=== PATIENT | female | born 1970 | race Caucasian/White ===

== ENCOUNTER 2017-06-23 16:49 | Outpatient (CLI) | payer OTHER ==
--- NOTE | 2017-06-23 19:50 | RAD ---
CHEST TWO VIEWS 06/23/17 HISTORY: Cough. Bronchitis. COMPARISON: 10/13/16. FINDINGS: The cardiac silhouette and pulmonary vasculature are unremarkable. Mediastinum is midline. There is no confluent air space consolidation, pneumothorax, or pleural fluid evident. IMPRESSION: No active cardiopulmonary abnormalities are demonstrated. POS: [facility]
== END 2017-06-23 16:50 | disposition home or self-care (01) ==
LOC: SCSRAD 16:49
PROVIDERS: ATTEND Nurse Practitioner Family
DX: J40 Bronchitis, not specified as acute or chronic (principal)
CPT/HCPCS: 71020

== ENCOUNTER 2017-08-04 12:42 | Emergency (ER) | payer OTHER ==
--- NOTE | 2017-08-04 13:26 | RAD ---
CHEST TWO VIEWS: History: Cough. Comparison: 06-23-17 FINDINGS: The cardiac silhouette and pulmonary vasculature are unremarkable. Mediastinum is midline. There is n o confluent airspace consolidation, pneumothorax, or pleural fluid apparent. IMPRESSION: 1. No active cardiopulmonary abnormalities are demonstrated. POS: [facility]
[2017-08-04] MEDS ORDERED: predniSONE 20 MG TAB ONE (13:58)
[2017-08-04] MEDS ORDERED: Albuterol Sulfate 2.5 mg/3 ml Neb ONE (14:01)
== END 2017-08-04 14:12 | disposition home or self-care (01) ==
LOC: SCSER 12:42
DX: J32.9 Chronic sinusitis, unspecified (principal); F32.9 Major depressive disorder, single episode, unspecified; Z79.899 Other long term (current) drug therapy; Z87.891 Personal history of nicotine dependence
CPT/HCPCS: 71020; 94640; J7506; J7611

== ENCOUNTER 2017-11-23 11:21 | Outpatient (CLI) | payer OTHER ==
--- NOTE | 2017-12-23 14:00 | MMO ---
BILATERAL SCREENING MAMMOGRAM: Indication: Annual exam. Comparison: None available at the time of this evaluation. This will serve as the patient's baseline examination. Previous mammograms reportedly performed in [place]. These were unable to be retrieved. FINDINGS: This study is interpreted with the assistance of computer aided detection. There are scattered fibroglandular elements within both breasts. There is an intramammary lymph node within the inner aspect of the right breast. No suspicious mass, cluster of microcalcifications ore a rchitectural distortion is evident. IMPRESSION: BIRADS 2 - benign. Recommend routine screening mammography. POS: [facility]
== END 2017-11-23 11:22 | disposition home or self-care (01) ==
LOC: SCSMAMMO 11:21
PROVIDERS: ATTEND Family Medicine
DX: Z12.31 Encounter for screening mammogram for malignant neoplasm of breast (principal)
CPT/HCPCS: 77067

== ENCOUNTER 2018-01-11 10:11 | Outpatient (CLI) | payer OTHER | END 2018-01-11 10:12 | disposition home or self-care (01) | LOC: CTENTCT 10:11 | PROVIDERS: ATTEND Physician Assistant | DX: J32.9 Chronic sinusitis, unspecified (principal) | CPT/HCPCS: 70486 ==

== ENCOUNTER 2018-02-04 11:30 | Day surgery (SDC) | payer OTHER ==
[2018-02-03 15:07] VITALS: BMI 43.7
[2018-02-04] MEDS ORDERED: Oxymetazoline HCl 0.05% ( 15 ML ) ONE ×2 (11:59→12:37)
[2018-02-04] MEDS ORDERED: Lidocaine 1% w/Epinephrine 1:100K 30 ML VIAL ONE (12:37)
[2018-02-04] MEDS ORDERED: Scopolamine 1.5 mg/72 hour Patch ONE (12:42)
[2018-02-04] MEDS ORDERED: Midazolam HCl 2 mg/2 ml Vial ONE (12:42)
[2018-02-04] MEDS ORDERED: Fentanyl 250 MCG/5 ML VIAL ONE (12:42)
[2018-02-04] MEDS ORDERED: Fentanyl 100 MCG/2 ML VIAL ONE (14:33)
[2018-02-04] MEDS ORDERED: Glycopyrrolate 0.2 MG/ML 5 ML SYRINGE ONE (15:27)
[2018-02-04] MEDS ORDERED: Esmolol 100 MG/10 ML VIAL ONE (15:27)
[2018-02-04] MEDS ORDERED: Ondansetron HCl/PF 4 MG/2 ML Vial ONE (15:27)
[2018-02-04] MEDS ORDERED: Dexamethasone 20 MG/5 ML VIAL ONE (15:27)
[2018-02-04] MEDS ORDERED: Lidocaine 1% PF 5 ML VIAL ONE (15:27)
[2018-02-04] MEDS ORDERED: PROPOFOL 200 MG/20 ML VIAL ONE (15:27)
[2018-02-04] MEDS ORDERED: Hydrocodone-Acetamin 15 ML UDCUP ONE (15:45)
--- NOTE | 2018-02-04 16:28 | OP ---
PREOPERATIVE DIAGNOSES: Chronic sinusitis, recurrent sinusitis, deviated septum, hypertrophic inferi or turbinates, ye bullosa. POSTOPERATIVE DIAGNOSES: Chronic sinusitis, recurrent sinusitis, deviated septum, hypertrophic infer ior turbinates, ye bullosa. PROCEDURES PERFORMED: 1. Right nasal endoscopy with resection of ye bullosa. 2. Bilateral nasal endoscopy with total ethmoidectomy. 3. Bilateral nasal endoscopy with frontal sinusotomy. 4. Bilateral nasal endoscopy with maxillary antrostomy with removal of tissue. 5. Bilateral nasal endoscopy with sphenoidotomy. 6. Bilateral nasal endoscopy with submucosal resection of inferior turbinates and septoplasty. PROCEDURE IN DETAIL: After consent was obtained, the patient was identified, brought to the operatin g room, and placed on the operating room table in the supine position. Consent was obtained, notifyi ng the patient of the possibility of additional infections, bleeding, brain injury, and eye/orbital i njury. The patient was placed on the operating room table, and general endotracheal anesthesia and intravenous access was obtained. The patient was then positioned, prepped and draped for endoscopic sinus surgery. Nasal preparation included trimming nasal vestibular hairs and spraying in topical Af rin. We then placed Afrin topical solution on nasal pledgets and strategically located them intranas ally. The perinasal mucosa was injected with 1% lidocaine with 1:100,000 epinephrine in the submucop erichondrial plane of the septum, lateral nasal wall, and anterior to the uncinate. The patient was then prepped and draped in a sterile fashion and positioned for endoscopic sinus surgery. The ye bullosa was identified and entered with a sickle blade. The lateral aspect of the ye bullosa was meticulously resected while leaving the medial most aspect to form the new middle turbina te. Attention was made not to violate the mucosa. The straight biting punches and micro-debrider we re used to remove shrouds of mucosa and bony debris. The uncinate was then identified and the extent of the uncinate was appreciated by out-fracturing the uncinate with the ball-tip probe. We then used the sickle blade to disarticulate the uncinate from the lateral nasal wall. This was then removed with straight biting and upbiting punches with the rem aining shrouds of mucosa and bony septum removed with the micro-debrider. The natural os of the maxi llary sinus was then identified and enlarged with the maxillary punches and back biting forceps. The anterior face of the ethmoid bulla was entered and with the micro-debrider, dissection continued posteriorly to the ground lamella. The limits of dissection included the insertion of the middle tur binate, medial orbital wall, and base of skull. We similarly identified the frontal recess and remov ed shrouds of bone and debris in that region to obtain patency into the agger nasi region and frontal recess. We then entered the ground lamella and its anteroinferior aspect and proceeded posteriorly, opening the posterior ethmoid air-cell system. Again, the limits of dissection included the base of skull and medial orbital wall. The anterior face of the sphenoid was identified and entered in its extreme anteroinferior aspect. A sphenoid punch was then used to enlarge the sphenoidotomy and no injury to the optic nerve or email marketing intern al carotid artery occurred. The inferior turbinates were visualized under endoscopic visualization and outfractured with the elev ator. The inferolateral edge of the inferior turbinate was then cauterized along its length with the suction cautery without difficulty. The inferior turbinates were visualized with a 0-degree endoscope and outfractured with a Joey eleva tor. The inferior medial aspect was cauterized with the electrocautery. Hemostasis was obtained. A fter adequate airway was established, we turned our attention to the contralateral side and used a si milar procedure. Again, a Joey elevator was used to outfracture inferior turbinates under endoscopi c visualization. With a suction cautery, the free inferior medial aspect was cauterized under direct visualization along the length of the inferior turbinate. After local anesthesia was infiltrated into the submucoperichondrial plane, a standard Harish incisi on was made with a #15 blade down to the level of the septal cartilage. The caudal elevator was used to elevate the mucoperichondrium from the underlying cartilage. We then proceeded beyond the bony c artilaginous junction and elevated the bony periosteum as well. Great attention was paid to the spur to prevent rent formation in the septal flap. A transcartilaginous incision was then made, while pre serving an adequate dorsal and caudal cartilaginous strut for tip support. The deformed cartilage wa s removed and disarticulated from the bony cartilaginous junction and maxillary crest. This was plac ed in saline and would later be crushed and returned to the mucoperichondrial envelope. We then elev ated the contralateral periosteum from the bony cartilaginous region and removed the deformed portion s of the bone and bony spurs. The cartilage was then crushed and placed back into the mucoperichondr ial envelope and the mucosa was re-approximated with a quilting stitch composed of rapidly absorbent gut suture. The [place] incision was also closed with interrupted gut suture. At the completion of the case, Chen splints were placed and suture secured to the caudal septum. At this point, we then turned our attention to the contralateral side and proceeded with endoscopic s inus surgery. At the completion of the case, Rice keel splints were placed in the ethmoid cavities after the ethmoi dectomy. There were no complications. The patient tolerated the procedure well and was discharged t o the recovery room in stable condition prior to return to the preoperative Day Stay with [facility]. Prescriptions for pain medication and antibiotics were provided. The patient received intramuscular Depo-Medrol during the case.
== END 2018-02-04 16:47 | disposition home or self-care (01) ==
LOC: SDC 11:30
PROVIDERS: ATTEND Specialist
PROC: 09TV8ZZ Resection of Left Ethmoid Sinus, Via Natural or Artificial Opening Endoscopic (ICD-10-PCS; principal; 2018-02-04)
PROC: 099Q8ZZ Drainage of Right Maxillary Sinus, Via Natural or Artificial Opening Endoscopic (ICD-10-PCS; principal; 2018-02-04)
PROC: 09BT8ZZ Excision of Left Frontal Sinus, Via Natural or Artificial Opening Endoscopic (ICD-10-PCS; principal; 2018-02-04)
PROC: 09RM0KZ Replacement of Nasal Septum with Nonautologous Tissue Substitute, Open Approach (ICD-10-PCS; principal; 2018-02-04)
PROC: 099R8ZZ Drainage of Left Maxillary Sinus, Via Natural or Artificial Opening Endoscopic (ICD-10-PCS; principal; 2018-02-04)
PROC: 09BS8ZZ Excision of Right Frontal Sinus, Via Natural or Artificial Opening Endoscopic (ICD-10-PCS; principal; 2018-02-04)
PROC: 09TL8ZZ Resection of Nasal Turbinate, Via Natural or Artificial Opening Endoscopic (ICD-10-PCS; principal; 2018-02-04)
PROC: 09TU8ZZ Resection of Right Ethmoid Sinus, Via Natural or Artificial Opening Endoscopic (ICD-10-PCS; principal; 2018-02-04)
PROC: 09BX8ZZ Excision of Left Sphenoid Sinus, Via Natural or Artificial Opening Endoscopic (ICD-10-PCS; principal; 2018-02-04)
PROC: 09BW8ZZ Excision of Right Sphenoid Sinus, Via Natural or Artificial Opening Endoscopic (ICD-10-PCS; principal; 2018-02-04)
DX: J32.9 Chronic sinusitis, unspecified (principal); J34.2 Deviated nasal septum; J34.3 Hypertrophy of nasal turbinates; J34.89 Other specified disorders of nose and nasal sinuses; I10 Essential (primary) hypertension; K21.9 Gastro-esophageal reflux disease without esophagitis; F32.9 Major depressive disorder, single episode, unspecified; J30.1 Allergic rhinitis due to pollen; J30.81 Allergic rhinitis due to animal (cat) (dog) hair and dander; J30.89 Other allergic rhinitis; Z87.891 Personal history of nicotine dependence; Z79.899 Other long term (current) drug therapy; Z88.5 Allergy status to narcotic agent
CPT/HCPCS: 36415; 85014; 96374; J1100; J2001; J2250; J2405; J2704; J2920; J3010

== ENCOUNTER → 2018-06-15 | Day surgery (SDC) | payer OTHER ==
[2018-06-14 11:55] VITALS: BMI 44.8
[~2018-06-15] MED LIST: Bacitracin Zinc Ointment 30 gm TUBE ONE; Betamet Acet/Betamet Na Ph 30 MG/5 ML VIAL ONE; Bupivacaine PF 0.5% 30 ML VIAL ONE; CEFAZOLIN 2 GM/50 ML BAG ONE; Famotidine/PF 20 mg/2ml Vial ONE; Fentanyl 100 MCG/2 ML VIAL ONE; Ketorolac Tromethamine 30 MG/ML VIAL ONE; Lidocaine 1% PF 5 ML VIAL ONE; Metoclopramide HCl 10 MG/2 ML VIAL ONE; Midazolam HCl 2 mg/2 ml Vial ONE; Ondansetron PF 4 MG/2 ML Vial ONE; PHENYLEPHRINE-NS 100 MCG/ML 10 ML SYRINGE ONE; PROPOFOL 20 ML ONE; PROPOFOL 200 MG/20 ML VIAL ONE
[2018-06-15 07:42] LABS: #Eosinphils 0.2 thou/uL (0.0-0.7); #Lymphocytes 1.2 thou/uL (1.20-3.40); #Monocytes 0.6 thou/uL (0.11-0.59); #Neutrophils 4.4 thou/uL (1.40-6.50); %Basophils 0.6 % (0.0-1.0); %Eosinophils 2.5 % (0.0-10.0); %Lymphocytes 18.6 % (21.0-51.0); %Monocytes 8.9 % (0.0-10.0); %Neutrophils 69.4 % (42.0-75.0); Hemoglobin 12.6 g/dL (12.0-16.0); Mean Corpuscular HGB CONC 31.1 g/dL (32.0-36.0); Mean Corpuscular Hemoglobin 28.7 pg (27.0-31.0); Mean Corpuscular Volume 92.2 fL (78.0-98.0); Mean Platelet Volume 9.9 fL (7.4-10.4); Platelet Count 184 thou/uL (130-400); RBC Distribution Width 12.9 % (11.5-14.5); Red Blood Cell (RBC) Count 4.37 mill/uL (4.20-5.40); White Blood Cell (WBC) Count 6.3 thou/uL (4.8-10.8)
--- NOTE | 2018-06-16 15:13 | OP ---
DATE OF PROCEDURE: 06/15/2018 SURGEON: Ean West M.D. ANESTHESIA: General LMA. TECHNIQUE: Augmented by 10 mL of 0.5% Marcaine block at the carpal tunnel and along the incision. PREOPERATIVE DIAGNOSES: 1. Right carpal tunnel syndrome. 2. Left carpal tunnel syndrome. POSTOPERATIVE DIAGNOSES: 1. Right carpal tunnel syndrome. 2. Left carpal tunnel syndrome. FINDINGS: Left and right carpal tunnel syndrome with finding of stippling over 1 cm area on the left side and over 3/4 cm on the right with early hourglass formation, flattening on both sides. Also, t he patient underwent steroid injection, 2 mL of Celestone dripped over the area of greatest nerve inv olvement. PROCEDURES PERFORMED: Left carpal tunnel release followed by right carpal tunnel release. TOURNIQUET TIME: At the left, 12 minutes, 11 minutes. BLOOD LOSS: Same 5 mL at each, dressings same. INDICATIONS: Patient has failed conservative treatment to include injections which gave fleeting rel ief greater than 1 week, but not permanent, bracing and medication, but all failed for bilatera l carpal tunnel syndrome. DESCRIPTION OF PROCEDURE: After successful general LMA technique, the limb was prepped and draped. We had both sides prepped and draped simultaneously. We initially approached the left. We exsanguin ated the limb, placed the tourniquet at 250 mmHg pressure. Outline incision beginning at the Wood' s cardinal line distally in line with the ring finger and as far proximal as 5 mm distal volar wrist flexion crease. We carried the incision once tourniquet was inflated through skin and subcutaneous t issue with an 11-blade knife. Then, we dissected down sharply to visualize the transcarpal ligament entered into midportion from there distally, protecting all the nerve branch with type 1 nerve takeof f. We then did the same procedure using combination of [place] blade and tenotomy scissors from the m id portion proximally until we have freed the nerve root completely. We then found the hourglass for mation and stippling erythema, but there was not taken enough synovium to require synovectomy. We then inflated the tourniquet, placed 2 mL of Celestone into the wound over the nerve area, where w missael found the stippling and hourglass formation, and closed the incision with interrupted 4-0 nylon mat tress pattern. Bulky dressing was applied and then we turned our attention to the right side. On the right side, I set for a tourniquet time of 1 minute, less than 11, the exact same mirror image procedure was performed with same findings, outcome, dressing, and no castings whatsoever.
== END ==
LOC: SDC 07:02
PROVIDERS: ATTEND Orthopaedic Surgery Hand Surgery
PROC: 01N50ZZ Release Median Nerve, Open Approach (ICD-10-PCS; principal; 2018-06-15)
DX: G56.03 Carpal tunnel syndrome, bilateral upper limbs (principal); G56.10 Other lesions of median nerve, unspecified upper limb; M47.812 Spondylosis without myelopathy or radiculopathy, cervical region; Z90.710 Acquired absence of both cervix and uterus; Z98.890 Other specified postprocedural states
CPT/HCPCS: 36415; 85025; 96372; J0131; J0702; J1885; J2001; J2250; J2405; J2704; J2765; J3010; S0020; S0028

== ENCOUNTER 2018-11-18 08:44 | Outpatient (CLI) | payer OTHER ==
--- NOTE | 2018-11-18 09:22 | RAD ---
KUB: 11/18/2018 COMPARISON: None HISTORY: Epigastric pain, generalized abdominal pain FINDINGS: Punctate calcification in left upper quadrant may represent a 3 mm left renal stone. Bowel gas pattern appears nonobstructed. No acute osseous abnormality. Suture line suspected in left upper quadrant. IMPRESSION: No acute findings.
== END 2018-11-18 08:45 | disposition home or self-care (01) ==
LOC: SCSRAD 08:44
PROVIDERS: ATTEND Nurse Practitioner Family
DX: R10.84 Generalized abdominal pain (principal)
CPT/HCPCS: 74018

== ENCOUNTER 2018-12-17 08:04 | Outpatient (CLI) | payer OTHER ==
--- NOTE | 2018-12-17 12:00 | MMO ---
Bilateral MAMMO Bilat Screen [facility]DI. CLINICAL HISTORY: Patient is 48 years old and is seen for screening. The patient has no family history of breast cancer. The patient has no personal history of cancer. VIEWS: The views performed were: bilateral craniocaudal and bilateral mediolateral oblique. FILMS COMPARED: The present examination has been compared to a prior imaging study performed at [facility] on 11/23/2017. This study has been interpreted with the assistance of computer-aided detection. MAMMOGRAM FINDINGS: There are scattered fibroglandular densities. There are no suspicious masses, suspicious calcifications, or new areas of architectural distortion. IMPRESSION: THERE IS NO MAMMOGRAPHIC EVIDENCE OF MALIGNANCY. A ROUTINE FOLLOW-UP MAMMOGRAM IN 1 YEAR IS RECOMMENDED. ACR BI-RADS Category 1 - Negative MAMMOGRAPHY NOTE: 1. A negative mammogram report should not delay a biopsy if a dominant of clinically suspicious mass is present. 2. Approximately 10% to 15% of breast cancers are not detected by mammography. 3. Adenosis and dense breasts may obscure an underlying neoplasm.
== END 2018-12-17 08:05 | disposition home or self-care (01) ==
LOC: SCSMAMMO 08:04
PROVIDERS: ATTEND Family Medicine
DX: Z12.31 Encounter for screening mammogram for malignant neoplasm of breast (principal)
CPT/HCPCS: 77067

== ENCOUNTER 2019-06-29 07:00 | Outpatient (CLI) | payer OTHER ==
--- NOTE | 2019-06-29 07:42 | ULT ---
Gallbladder ultrasound: Multiple grayscale images of right upper quadrant obtained according to protocol. INDICATION: Pain FINDINGS: Liver: Normal Gallbladder: No acute process Gallbladder wall: Normal. Isbell's Sign: Negative Common bile duct is normal. Ascites: None IMPRESSION: No acute abnormalities.
== END 2019-06-29 07:01 | disposition home or self-care (01) ==
LOC: SCSULT 07:00
PROVIDERS: ATTEND Internal Medicine Gastroenterology
DX: R10.13 Epigastric pain (principal); R19.4 Change in bowel habit
CPT/HCPCS: 76705

== ENCOUNTER 2019-06-29 09:51 | Day surgery (SDC) | payer OTHER ==
[2019-06-28 16:49] VITALS: BMI 48.5
[~2019-06-29 09:51] MED LIST changes: -Bacitracin Zinc Ointment 30 gm TUBE ONE; -Betamet Acet/Betamet Na Ph 30 MG/5 ML VIAL ONE; -Bupivacaine PF 0.5% 30 ML VIAL ONE; -CEFAZOLIN 2 GM/50 ML BAG ONE; -Famotidine/PF 20 mg/2ml Vial ONE; -Fentanyl 100 MCG/2 ML VIAL ONE; -Ketorolac Tromethamine 30 MG/ML VIAL ONE; -Metoclopramide HCl 10 MG/2 ML VIAL ONE; -Midazolam HCl 2 mg/2 ml Vial ONE; -Ondansetron PF 4 MG/2 ML Vial ONE; -PHENYLEPHRINE-NS 100 MCG/ML 10 ML SYRINGE ONE; -PROPOFOL 20 ML ONE
--- NOTE | 2019-06-29 18:17 | OP ---
DATE OF PROCEDURE: 06/29/2019 PROCEDURE PERFORMED: Esophagogastroduodenoscopy with biopsy. PREMEDICATION: Given by Anesthesiology Department. PREPROCEDURE DIAGNOSES: 1. Epigastric pain. 2. Normal gallbladder ultrasound. 3. Status post gastrojejunostomy in 2003. POSTPROCEDURE DIAGNOSES: 1. Three ulcers in jejunum portion distal to the anastomosis, largest measuring 1 cm. 2. Normal anastomosis. 3. Normal pouch and esophagus. DESCRIPTION OF PROCEDURE: Written consents obtained prior to procedure. After adequate sedation, forward-viewing endoscope was advanced down the stomach under direct vision to the jejunum. The esophagus appeared normal. The Z-line was located at 36 cm and appeared normal. The gastric pouch measured 5 cm in length and appeared normal. The anastomosis was normal. Immediately beyond the anastomosis, 3 ulcers ranging between 5 mm to 10 mm were seen. The craters were clean. No stigmata of bleeding were seen. The jejunum was explored for 40 cm and appeared normal. The scope was then retracted back to the pouch. Biopsies were obtained for Helicobacter pylori. The instruments have fully removed. The patient tolerated the procedure well. ASSESSMENT: 1. Three jejunal ulcers immediately distal to the anastomosis. 2. Otherwise normal gastrojejunostomy exam with 5 cm pouch. PLAN: 1. Await biopsy results. 2. Pantoprazole 40 mg q.a.m. 3. Follow up in office in 1 month. Job ID: [id number]
== END 2019-06-29 12:51 | disposition home or self-care (01) ==
LOC: SDC 09:51
PROVIDERS: ATTEND Internal Medicine Gastroenterology
PROC: 0DB68ZX Excision of Stomach, Via Natural or Artificial Opening Endoscopic, Diagnostic (ICD-10-PCS; principal; 2019-06-29)
DX: K28.9 Gastrojejunal ulcer, unspecified as acute or chronic, without hemorrhage or perforation (principal); K29.50 Unspecified chronic gastritis without bleeding; R19.4 Change in bowel habit; I10 Essential (primary) hypertension; Z79.899 Other long term (current) drug therapy; Z88.5 Allergy status to narcotic agent; Z87.891 Personal history of nicotine dependence
CPT/HCPCS: 76705; 88305; 88312; J2001; J2704

== ENCOUNTER 2019-10-31 15:17 | Inpatient (IN) | payer OTHER ==
[2019-10-31 16:20] LABS: #Eosinphils 0.1 thou/uL (0.0-0.7); #Lymphocytes 1.2 thou/uL (1.20-3.40); #Monocytes 0.4 thou/uL (0.11-0.59); #Neutrophils 7.3 thou/uL (1.40-6.50); %Basophils 0.4 % (0.0-1.0); %Eosinophils 0.9 % (0.0-10.0); %Lymphocytes 13.3 % (21.0-51.0); %Monocytes 4.8 % (0.0-10.0); %Neutrophils 80.6 % (42.0-75.0); Hemoglobin 9.7 g/dL (12.0-16.0); Mean Corpuscular HGB CONC 33.4 g/dL (32.0-36.0); Mean Corpuscular Hemoglobin 31.7 pg (27.0-31.0); Mean Platelet Volume 10.3 fL (7.4-10.4); Platelet Count 175 thou/uL (130-400); RBC Distribution Width 12.7 % (11.5-14.5); Red Blood Cell (RBC) Count 3.04 mill/uL (4.20-5.40); White Blood Cell (WBC) Count 9.1 thou/uL (4.8-10.8)
[2019-10-31 16:26] LABS: PTT 23.5 SEC (22.9-36.1); Prothrombin Time 13.4 SEC (12.0-14.7)
[2019-10-31 16:45] LABS: ALT (SGPT) 15 U/L (8-55); AST (SGOT) 18 U/L (5-34); Albumin 3.5 g/dL (3.5-5.0); Alkaline Phosphatase 96 U/L (40-110); Anion Gap 13 mmol/L (10-20); BUN (Urea Nitrogen) 23 mg/dL (7.0-18.7); Bilirubin, Total 0.2 mg/dL (0.2-1.2); Calc. Creatinine Clearance 0 mL/min (70-130); Calcium 8.8 mg/dL (7.8-10.44); Carbon Dioxide 26 mmol/L (22-29); Chloride 105 mmol/L (98-107); Estimated GFR-MDRD 75; Globulin 2.7 g/dL (2.4-3.5); Glucose 151 mg/dL (70-105); Lipase 26 U/L (8-78); Potassium 4.8 mmol/L (3.5-5.1); Protein, Total 6.2 g/dL (6.0-8.3); Sodium 139 mmol/L (136-145)
[2019-10-31] MEDS ORDERED: Pantoprazole 40 MG VIAL IVP SCH (16:45)
[2019-10-31] MEDS ORDERED: Sodium Chloride 0.9% 1,000 ML IV SCH (17:20)
[2019-10-31 18:02] VITALS: BMI 48.2
[2019-10-31 19:26] LABS: Lactic Acid 1.3 mmol/L (0.5-2.2)
[2019-10-31] MEDS ORDERED: Senokot S 8.6-50 MG TAB PO PRN (19:28)
[2019-10-31] MEDS ORDERED: Ondansetron PF 4 MG/2 ML Vial IVP PRN (19:28)
[2019-10-31] MEDS ORDERED: Guaifenesin DM 100-10/5 ML UDCUP PO PRN (19:28)
[2019-10-31] MEDS ORDERED: Acetaminophen 650 MG Suppository PR PRN (19:28)
[2019-10-31] MEDS ORDERED: Acetaminophen 325 MG TAB PO PRN (19:28)
[2019-10-31] MEDS ORDERED: Ondansetron ODT 4 MG TAB PO PRN (19:28)
[2019-10-31] MEDS ORDERED: Pantoprazole 80 MG in Sodium Chloride 0.9% 100 ML IVPB SCH (19:30)
--- NOTE | 2019-10-31 20:11 | HP ---
PRIMARY CARE PHYSICIAN: Dr. Esteves. CHIEF COMPLAINT: Syncope and GI bleed. HISTORY OF PRESENT ILLNESS: This is a 48-year-old white female, with a past medical history significant for previous Adebayo-en-Y gastric surgery who was seen by Dr. Hernandez as an outpatient about 5 months ago for some dysphagia and had an EGD which showed some ulcerations near her gastrojejunal anastomosis. The biopsies were negative for H pylori or cancer. Patient just had lunch with her employer, Dr. Inderjit Rowley, as she was going to be leaving the office soon. She went back to her office to work and started to feel very flushed and she began to get dizzy, lightheaded, started to feel nauseated like she was going to pass out. She stood up to try and move off her chair to the floor so that she would not fall out of her chair, but she passed out before she was able to get down. She does not remember anything until she woke up in the ambulance. By EMS report to the ER here, patient was noted to have some stiffening and possible seizure activity after the syncopal episode and then she had a large bloody bowel movement into her clothes. Patient was brought to the ER here. Here, she had 2 more large bowel movements full of dark blood clots and some fresh-appearing blood as well. She has had a lot of gurgling in her stomach, but no abdominal pain, no more nausea, no vomiting. Patient was found to be anemic down to 9.7 in the emergency room. She had been 11.7 in May. She had IV fluids given and had some blood typed and crossed, but she has not been transfused anything. She has been started on a Protonix drip. REVIEW OF SYSTEMS: CONSTITUTIONAL: No fevers or chills. EYES: No double vision or blurred vision. ENT: No congestion, drainage, or sore throat. CARDIOVASCULAR: No chest pain. No palpitations or racing heart. She did have the syncopal episode as per the HPI. PULMONARY: No coughing, wheezing, or shortness of breath. GASTROINTESTINAL: See HPI. GENITOURINARY: No dysuria or hematuria. MUSCULOSKELETAL: She has some chronic stiffness in her bilateral hands and wrists when she wakes up, but no other musculoskeletal complaints. SKIN: No rashes or other lesions she has noted. NEUROLOGIC: No numbness, tingling, or focal weakness. PAST MEDICAL HISTORY: Hypertension. PAST SURGICAL HISTORY: 1. Appendectomy. 2. Abdominal hysterectomy. 3. Adebayo-en-Y gastric bypass surgery. 4. Bilateral carpal tunnel surgery. SOCIAL HISTORY: She is a former smoker. Does not smoke currently. She drinks an occasional glass of wine. No illicit drugs. She is single. She is a full code. Her medical decision maker should she be incapacitated would be her sister, Esthela Marin. FAMILY HISTORY: Father had early coronary artery disease with a 4-vessel CABG when he was 38 and then later on with esophageal cancer. Mother is alive and healthy, just suffers with depression. ALLERGIES: DILAUDID. CURRENT MEDICATIONS: 1. Biotin 5 mg daily. 2. Hydrochlorothiazide 25 mg daily. 3. Losartan 100 mg daily. 4. Naproxen 220 mg daily. 5. Sertraline 100 mg in the morning. PHYSICAL EXAMINATION: VITAL SIGNS: Blood pressure 129/62, pulse 70, respirations 20, O2 saturation 96% on room air, and temperature 97.9. GENERAL: Well-developed obese white female, in no acute distress. HEENT: Pupils are equal, round, and reactive to light. Oropharynx is clear without lesions, erythema, or exudate. She does have some pallor to her mucous membranes. NECK: Supple. No lymphadenopathy. No thyroid nodules or enlargement. HEART: Regular rate and rhythm. No murmurs, rubs, or gallops. LUNGS: Clear to auscultation bilaterally. No wheezes, crackles, or rhonchi. ABDOMEN: Obese, soft, and nontender to palpation. Normoactive bowel sounds. No hepatosplenomegaly or other masses palpable. EXTREMITIES: No clubbing, cyanosis, or edema. SKIN: No rashes or other lesions noted. NEUROLOGIC: She has intact strength and sensation in all extremities. No facial droop. PSYCHIATRIC: Alert and oriented x3. Normal mood and affect. LABORATORY DATA: CBC with a white blood cell count of 9.1, hemoglobin 9.7, hematocrit 28.9, and platelet count 175. This was done at 4 p.m. I just ordered a repeat hemoglobin and hematocrit and it came back at 9 at 7 o'clock and hemoglobin has come back at 9.0 and hematocrit has come back at 27.1. Coagulation profile is normal. Complete metabolic panel is notable for a BUN of 23, a glucose of 151 and the rest was normal. Lactic acid was initially elevated at 2.7 down to 1.3 on a recheck after IV fluids in the emergency room. ASSESSMENT: 1. Acute gastrointestinal bleed, likely upper gastrointestinal with her history of Adebayo-en-Y gastric bypass surgery. Patient's hemoglobin is stable at this point. Hopefully, her bleed has stopped. We will do some serial H and Hs and continue the Protonix drip. I have talked to Dr. Hendrickson and he is planning on doing an EGD on her in the morning. He will get by and see her tonight. The patient has been typed and crossed. We will transfuse blood if she starts to become unstable or hemoglobin drops below 7. 2. Hypertension. We will hold blood pressure medicines for right now. We will put p.r.n. IV medications until she has had her EGD. 3. Deep venous thrombosis prophylaxis. Put patient on sequential compression devices while in bed. 4. Gastrointestinal prophylaxis. Patient is already on Protonix IV. 5. Code status. The patient is a full code. Should she be incapacitated, her sister would be her medical decision maker. Her name is Esthela Marin. Job ID: [id number]
--- NOTE | 2019-10-31 22:51 | CON ---
DATE OF CONSULTATION: 10/31/2019 CHIEF COMPLAINT: Passed out and blood in stool. HISTORY OF PRESENT ILLNESS: Ms. Marin is a 48-year-old woman, who has had a prior Adebayo-en-Y gastric bypass surgery for weight loss back in 2003. She was at work today and suddenly felt hot and lightheaded and weak. She started fanning herself and then felt like she needed to get down, but she stood up from her chair and then just had to sit right back down in her chair and then next thing she knows she woke up on the floor. She was kind of dizzy and out of it and she was assisted to patient care room. At that point, she passed a red bloody stool with dark clots. She then transferred to the emergency room, where she passed two more bloody stools. She had blood work done that showed a hemoglobin of 9.7, and she was admitted to the telemetry floor and given IV fluids and IV proton pump inhibitor. She feels better now, but did have one more bloody bowel movement since transferring from the emergency room. She has had no vomiting but did have nausea when she first started feeling ill. She has no abdominal pain. She has had no prior history of gastrointestinal bleed, but had upper endoscopy back on June 29, 2019, by Dr. Hernandez. The upper endoscopy revealed three ulcers at the anastomosis and on the jejunal side with ulcers ranging from 5 mm to 10 mm in diameter. She had biopsies from the stomach performed, which were negative for Helicobacter pylori. More recently, she quit taking tramadol and instead has been taking naproxen. She takes naproxen twice daily as scheduled medication over the last 3 months. She smokes a pack per week. She drinks about a 12-pack of beer per weekend. Prior to her gastric bypass surgery, her weight was 380 pounds. Her lowest she dropped down to 180 pounds. She more recently has been around 275 pounds as her baseline without significant changes over the last 6 months. PAST MEDICAL HISTORY: Hypertension, chronic back pain, depression. PAST SURGICAL HISTORY: Appendectomy, hysterectomy, Adebayo-en-Y gastric bypass, bariatric surgery. SOCIAL HISTORY: She smokes a pack per week. She drinks 12-pack of beer on the weekends. No drugs. FAMILY HISTORY: Negative for GI malignancy. ALLERGIES: DILAUDID. MEDICATIONS: Prior to admission: 1. Naproxen 1 tablet twice daily. 2. Biotin. 3. Losartan. 4. Hydrochlorothiazide. 5. Sertraline. REVIEW OF SYSTEMS: Negative x10 systems reviewed except as stated in the history of present illness. PHYSICAL EXAMINATION: VITAL SIGNS: Temperature 98.3, pulse 81, blood pressure 116/56. GENERAL: She is in no acute distress. Alert and oriented x3. HEENT: Eyes have no scleral icterus. Oropharynx is clear without lesions. No cervical or supraclavicular lymphadenopathy. LUNGS: Clear to auscultation bilaterally. HEART: Regular rate and rhythm without murmur. ABDOMEN: Soft, nontender, and nondistended. Bowel sounds are present. EXTREMITIES: No lower extremity edema. She has small red stool in the toilet with a small blood clot smear on the toilet tissue. LABORATORY DATA: Creatinine 0.81, bilirubin 0.2, AST 18, ALT 15, alkaline phosphatase 96, lipase 26. INR 1.0. Hemoglobin 9.0, white blood cell count 9.1, platelets 175. IMPRESSION: 1. Gastrointestinal bleed. While she was passing dark red blood and clots, I think this is most likely an upper gastrointestinal bleed from anastomosis ulcer at the gastrojejunostomy. She did have ulcers noted here back in June and since then has started taking naproxen twice daily and continues to smoke. She less likely has a lower gastrointestinal bleeding source. 2. Anemia of acute blood loss, presenting with syncope. RECOMMENDATIONS: 1. Stop NSAIDs. 2. Stop smoking. 3. Proton pump inhibitor. 4. Recommend reduction of alcohol intake. 5. EGD tomorrow. 6. Follow trend of the hemoglobin and transfuse as necessary. Job ID: [id number]
[2019-10-31 23:23] LABS: Hemoglobin 8.3 g/dL (12.0-16.0)
[2019-11-01] MEDS: Sodium Chloride 0.9% 1,000 ML IV SCH ×3 (04:13→22:15)
[2019-11-01 04:24] LABS: #Eosinphils 0.2 thou/uL (0.0-0.7); #Lymphocytes 1.6 thou/uL (1.20-3.40); #Monocytes 0.5 thou/uL (0.11-0.59); %Basophils 0.1 % (0.0-1.0); %Eosinophils 2.3 % (0.0-10.0); %Lymphocytes 22.1 % (21.0-51.0); %Monocytes 6.3 % (0.0-10.0); %Neutrophils 69.2 % (42.0-75.0); Hemoglobin 7.8 g/dL (12.0-16.0); Mean Corpuscular HGB CONC 33.3 g/dL (32.0-36.0); Mean Corpuscular Hemoglobin 31.5 pg (27.0-31.0); Mean Corpuscular Volume 94.8 fL (78.0-98.0); Mean Platelet Volume 10.2 fL (7.4-10.4); Platelet Count 124 thou/uL (130-400); RBC Distribution Width 12.8 % (11.5-14.5); Red Blood Cell (RBC) Count 2.49 mill/uL (4.20-5.40); White Blood Cell (WBC) Count 7.3 thou/uL (4.8-10.8)
[2019-11-01 04:49] LABS: Anion Gap 7 mmol/L (10-20); BUN (Urea Nitrogen) 19 mg/dL (7.0-18.7); Calc. Creatinine Clearance 204 mL/min (70-130); Calcium 8.2 mg/dL (7.8-10.44); Carbon Dioxide 29 mmol/L (22-29); Chloride 105 mmol/L (98-107); Estimated GFR-MDRD Greater than 90; Glucose 102 mg/dL (70-105); Potassium 4.4 mmol/L (3.5-5.1); Sodium 137 mmol/L (136-145)
[2019-11-01 06:45] LABS: Hemoglobin 7.7 g/dL (12.0-16.0)
[2019-11-01] MEDS ORDERED: Succinylcholine Chloride 20 MG/ML 10 ml SYRINGE FS ONE (09:31)
[2019-11-01] MEDS ORDERED: Ondansetron PF 4 MG/2 ML Vial ONE (09:31)
[2019-11-01] MEDS ORDERED: PROPOFOL 200 MG/20 ML VIAL ONE (09:31)
[2019-11-01] MEDS ORDERED: Lidocaine 1% PF 5 ML VIAL ONE (09:31)
[2019-11-01] MEDS ORDERED: EPINEPHrine 1 MG/10 ML Abboject SYRINGE ONE (09:31)
--- NOTE | 2019-11-01 10:04 | PDOC.HOSPP ---
- Subjective Encounter Date: 11/01/19 Encounter Time: 10:50 Subjective: Patient with one small bloody BM over night, none since. No abdominal pain. Not hungry. Awaiting EGD today. - Objective Vital Signs & Weight: Vital Signs (12 hours) Temp Pulse Resp BP Pulse Ox 11/01/19 08:10 99 11/01/19 07:46 98.7 F 78 18 120/56 L 99 11/01/19 04:35 98 F 73 16 116/57 L 98 11/01/19 00:25 98.4 F 77 14 103/58 L 96 Weight Weight 280 lb 13.903 oz I&O: 10/31/19 11/01/19 11/02/19 06:59 06:59 06:59 Intake Total 20 Balance 20 Result Diagrams: 11/01/19 10:54 11/01/19 04:03 Hospitalist ROS - Review of Systems Constitutional: denies: fever, chills Respiratory: denies: cough, dry, shortness of breath Cardiovascular: denies: chest pain, palpitations, orthopnea Gastrointestinal: reports: hematochezia. denies: nausea, vomiting, abdominal pain Genitourinary: denies: dysuria, hematuria - Medication Medications: Active Medications Generic Name Dose Route Start Last Admin Trade Name Freq PRN Reason Stop Dose Admin Sodium Chloride 1,000 mls @ 75 mls/hr 10/31/19 19:30 11/01/19 04:13 Normal Saline 0.9% IV 1,000 mls .[id number] PAZ Administration Pantoprazole Sodium 80 mg/ 100 mls @ 10 mls/hr 10/31/19 19:30 11/01/19 08:06 Sodium Chloride IVPB 100 mls INF PAZ Administration Sertraline HCl 100 mg 11/01/19 09:00 11/01/19 08:07 Zoloft PO 100 mg QAM PAZ Administration - Exam General Appearance: NAD, awake alert ENT: moist mucosa Heart: RRR, no murmur, no gallops, no rubs Respiratory: CTAB, no wheezes, no rales, no ronchi Gastrointestinal: soft, non-tender, non-distended, normal bowel sounds Psychiatric: normal affect, normal behavior, A&O x 3 Hosp A/P (1) Upper GI bleed Code(s): K92.2 - GASTROINTESTINAL HEMORRHAGE, UNSPECIFIED Status: Acute (2) Anemia due to acute blood loss Code(s): D62 - ACUTE POSTHEMORRHAGIC ANEMIA Status: Acute (3) HTN (hypertension) Code(s): I10 - ESSENTIAL (PRIMARY) HYPERTENSION Status: Chronic Qualifiers: Hypertension type: essential hypertension Qualified Code(s): I10 - Essential (primary) hypertension (4) Alcohol drinker Code(s): Z72.89 - OTHER PROBLEMS RELATED TO LIFESTYLE Status: Chronic (5) History of Adebayo-en-Y gastric bypass Code(s): Z98.84 - BARIATRIC SURGERY STATUS Status: Chronic - Plan H/H dropped overnight, still stable above 7, no orthostasis Plan for EGD today by Dr. Hendrickson Transfuse if H/H drops below 7 or hemodynamically unstable or as directed by GI
[2019-11-01 11:04] LABS: Hemoglobin 7.7 g/dL (12.0-16.0)
[2019-11-01] MEDS ORDERED: Ketamine 50 MG/ML (10ML VIAL) ONE (13:55)
[2019-11-01] MEDS ORDERED: Fentanyl 100 MCG/2 ML VIAL ONE (14:02)
[2019-11-01] MEDS ORDERED: SUGAMMADEX SODIUM 200 MG/2 ML VIAL ONE (14:30)
[2019-11-01] MEDS: Sucralfate 1 GM/10 ML UDCUP PO SCH ×2 (16:04→22:15)
[2019-11-01] MEDS ORDERED: FLU VACC QS2019-20(6MOS UP)/PF 60 MCG/0.5 ML SYRINGE IM ONE (21:00)
[2019-11-01] MEDS: Pantoprazole 40 MG VIAL IVP SCH (22:15)
[2019-11-02 04:27] LABS: Hemoglobin 8.2 g/dL (12.0-16.0)
--- NOTE | 2019-11-02 08:09 | OP ---
DATE OF PROCEDURE: 11/01/2019 PREPROCEDURE DIAGNOSES: 1. Upper gastrointestinal hemorrhage. 2. History of Adebayo-en-Y gastric bypass with prior history of anastomotic ulcer bleeding in the past 12 months. 3. Status post transfusion. 4. On Protonix drip. POSTPROCEDURE DIAGNOSES: Anastomotic ulcer just below the gastrojejunal anastomosis with visible vessel, adherent clot, injected 1:10,000 epinephrine cauterized with 10-[place] heater probe with ablation of visible vessel. RECOMMENDATIONS: 1. Avoid all NSAIDs after discharge. 2. Carafate slurry 1 g q.i.d. 3. IV Protonix q.12 hours, and if no bleeding in 24 hours, change to p.o. 4. Check hemoglobin and hematocrit tomorrow. If stable with no bleeding, the patient can go home on PPI, Carafate slurry which can be made out of the pills 1 g q.i.d. for 20 days, and the patient needs to avoid all NSAIDs, alcohol, and smoking or she will have recurrent anastomotic ulcers. This is not an acid based ulcer. ANESTHESIA: TIVA. PROCEDURE IN DETAIL: After the patient was informed of the risks, benefits, and possible complications of endoscopy including perforation, reaction to medication, aspiration, informed consent obtained and the patient was brought to endoscopy suite, where she was sedated in gradual fashion. Once she was comfortable, a bite block was placed inside her orifice. The endoscope was advanced to the esophagus, stomach, and second and third portions of the duodenum and was slowly removed. The esophagus was normal. The stomach pouch was noted to be normal in size with no erosions or ulcers. Just below the anastomosis from the stomach and the jejunal anastomosis, there was an ulcer that was notable for white base, but with visible vessel, adherent clot, this was washed away. The vessel was injected with 1:10,000 epinephrine and then burned with 10-[place] heater probe with ablation of vessel. The duodenum distal to this was normal. Retroflexed views in the stomach pouch were normal. The scope was removed. The patient tolerated the procedure well with no complications. Job ID: [id number]
[2019-11-02] MEDS: Sucralfate 1 GM/10 ML UDCUP PO SCH ×2 (08:33→12:22)
[2019-11-02] MEDS: Pantoprazole 40 MG VIAL IVP SCH (08:34)
--- NOTE | 2019-11-02 08:55 | PDOC.HOSPP ---
- Subjective Encounter Date: 11/02/19 Encounter Time: 10:55 Subjective: Patient with no more bowel movements. No pain. No dizzy/lightheaded with ambulation. Ready to go home. - Objective Vital Signs & Weight: Vital Signs (12 hours) Temp Pulse Resp BP Pulse Ox 11/02/19 07:47 97.6 F 68 16 127/59 L 96 11/02/19 07:14 95 11/02/19 03:09 98.2 F 69 14 117/58 L 95 11/02/19 01:19 98 Weight Admit Weight 280 lb 13.903 oz Weight 280 lb 13.903 oz I&O: 11/01/19 11/02/19 11/03/19 06:59 06:59 06:59 Intake Total 3265 Balance 3265 Result Diagrams: 11/02/19 03:58 11/01/19 04:03 Hospitalist ROS - Review of Systems Constitutional: denies: fever, chills, weakness Respiratory: denies: cough, shortness of breath Cardiovascular: denies: chest pain, palpitations Gastrointestinal: denies: nausea, vomiting, abdominal pain, diarrhea, constipation, melena, hematochezia Genitourinary: denies: dysuria, hematuria - Medication Medications: Active Medications Generic Name Dose Route Start Last Admin Trade Name Freq PRN Reason Stop Dose Admin Acetaminophen 650 mg 10/31/19 19:28 11/01/19 15:51 Tylenol PO 650 mg Q4H PRN Administration Headache/Fever/Mild Pain (1-3) Sodium Chloride 1,000 mls @ 75 mls/hr 10/31/19 19:30 11/01/19 22:15 Normal Saline 0.9% IV 1,000 mls .[id number] PAZ Administration Influenza Virus Vaccine Quadrival 60 mcg 11/02/19 09:00 11/02/19 08:24 Fluzone Quad 1718-1999 Syringe IM 11/02/19 09:01 Not Given .ONCE ONE Pantoprazole Sodium 40 mg 11/01/19 21:00 11/02/19 08:34 Protonix IVP 40 mg Q12HR PAZ Administration Pneumococcal Polyvalent Vaccine 0.5 ml 11/02/19 09:00 11/02/19 08:33 Pneumovax 23 IM 11/02/19 09:01 0.5 ml .ONCE ONE Administration Sertraline HCl 100 mg 11/01/19 09:00 11/02/19 08:34 Zoloft PO 100 mg QAM PAZ Administration Sucralfate 1 gm 11/01/19 17:00 11/02/19 08:33 Carafate PO 1 gm QID PAZ Administration - Exam General Appearance: NAD, awake alert ENT: moist mucosa Heart: RRR, no murmur, no gallops, no rubs Respiratory: CTAB, no wheezes, no rales, no ronchi Gastrointestinal: soft, non-tender, non-distended, normal bowel sounds Psychiatric: normal affect, normal behavior, A&O x 3 Hosp A/P (1) Upper GI bleed Code(s): K92.2 - GASTROINTESTINAL HEMORRHAGE, UNSPECIFIED Status: Acute Plan: anastamotic ulcer, s/p epinephrine injection and cautery ablation (2) Anemia due to acute blood loss Code(s): D62 - ACUTE POSTHEMORRHAGIC ANEMIA Status: Acute (3) HTN (hypertension) Code(s): I10 - ESSENTIAL (PRIMARY) HYPERTENSION Status: Chronic Qualifiers: Hypertension type: essential hypertension Qualified Code(s): I10 - Essential (primary) hypertension (4) Alcohol drinker Code(s): Z72.89 - OTHER PROBLEMS RELATED TO LIFESTYLE Status: Chronic (5) History of Adebayo-en-Y gastric bypass Code(s): Z98.84 - BARIATRIC SURGERY STATUS Status: Chronic - Plan H/H stable this AM, up a bit from single unit PRBC Anastamotic ulcer s/p epinephrine injection and cautery ablation Can switch to oral protonix BID, Carafate slurry 4x per day for 8 weeks, d/c home F/u GI outpatient as needed per Dr. Reyes
[2019-11-02] MEDS ORDERED: FLU VACC QS2019-20(6MOS UP)/PF 60 MCG/0.5 ML SYRINGE IM ONE (09:00)
[2019-11-02 11:28] VITALS: BP 173/78; TEMP 97.9
--- NOTE | 2019-11-02 12:45 | PRG ---
DATE OF SERVICE: 11/02/2019 SUBJECTIVE: Ms. Marin has no abdominal pain. She has had no overt bleeding. She feels well today and is tolerating her diet. OBJECTIVE: VITAL SIGNS: Temperature is 97.9, pulse 64, blood pressure 173/78. GENERAL: She is in no acute distress. Alert and oriented x3. LUNGS: Clear to auscultation bilaterally. HEART: Regular rate and rhythm without murmur. ABDOMEN: Soft, nontender, and nondistended. Bowel sounds are present. EXTREMITIES: No lower extremity edema. LABORATORY DATA: Hemoglobin is 8.2 today. IMPRESSION: 1. Anastomosis ulcer, presenting with GI bleed. EGD again shows Adebayo-en-Y gastric bypass anatomy with an ulcer just below the GE junction anastomosis. The ulcer had an adherent clot, visible vessel, which was cauterized with good hemostasis confirmed. 2. Anemia of acute blood loss. RECOMMENDATIONS: 1. Again, I reiterated with her today that she must stop all NSAIDs and stop smoking. She will be treated with pantoprazole. She was advised to avoid alcohol. 2. She can follow up with Dr. Hernandez in 6 weeks and she can discharge home today. Job ID: [id number]
--- NOTE | 2019-11-02 13:32 | DIS ---
DATE OF ADMISSION: 10/31/2019 DATE OF DISCHARGE: 11/02/2019 PRIMARY CARE PHYSICIAN: Julia Esteves MD REASON FOR ADMISSION: GI bleed. DISCHARGE DIAGNOSES: 1. Upper gastrointestinal bleed from anastomotic ulcer with bleeding vessel, resolved. 2. Anemia due to acute blood loss. 3. Hypertension. 4. History of Adebayo-en-Y gastric bypass. PROCEDURES: Esophagogastroduodenoscopy with epinephrine injection and cautery of ulcer with visible vessel. CONSULTATIONS: Gastroenterology, Dr. Hendrickson. SUMMARY OF HOSPITAL COURSE: This is a 48-year-old white female with a history of a previous Adebayo-en-Y gastric bypass surgery, who had previously seen Dr. Hernandez for an EGD 5 months ago and showed some ulcerations near gastrojejunal anastomosis. The patient was in her normal state of health until the day of admission after having lunch Dr. Inderjit Rowley. She started to feel flushed, lightheaded, dizzy, nauseated, then she passed out. She had some rigors, possible seizure activity after passing out and then passed over a large bloody bowel movement with clots and fresh blood. The patient had 2 more bloody bowel movements in the emergency room. She had an acute anemia as well, was given IV fluids. The patient then stabilized. She did have 1 unit of packed red blood cells transfused when she got down to the 7s. This brought her up to 8.2. She had no further bleeding. She did have an EGD done by Dr. Reyes after consultation by Dr. Hendrickson. The EGD did show an anastomotic ulcer with a blood vessel at the base with clot adherent. This was injected with epinephrine and then had a cautery ablation done. She tolerated the procedure well, had no further bleeding during hospital course. Her hemoglobin was stable. The patient was doing well on the day of discharge. She is ambulating well without any symptoms and is being discharged home. DISCHARGE MANAGEMENT: Discharged home. ACTIVITY: As tolerated. DIET: Healthy-heart diet. Avoid spicy or hard foods. FOLLOWUP: Follow up with Dr. Esteves in 2 to [address] Hernandez in his clinic as needed. DISCHARGE MEDICATIONS: 1. Protonix 40 mg twice a day, 60 tablets dispensed and one refill for a total treatment course of 8 weeks. 2. Carafate, 1 gram crushed in liquid to form a slurry, take 4 times a day, 120 tablets dispensed with one refill to complete an 8-week course. 3. Biotin 5 mg daily. 4. Zoloft 100 mg daily. 5. Hydrochlorothiazide 25 mg daily. 6. Losartan 100 mg daily. The patient is to stop all of her NSAIDs. She is to stop drinking any alcohol and is to avoid tobacco use. Job ID: [id number]
--- NOTE | 2019-11-03 11:12 | EKG ---
Test Reason : Blood Pressure : / mmHG Vent. Rate : 079 BPM Atrial Rate : 079 BPM P-R Int : 138 ms QRS Dur : 084 ms QT Int : 402 ms P-R-T Axes : 014 012 028 degrees QTc Int : 460 ms Normal sinus rhythm Normal ECG Confirmed by MANISH CAMARENA, TAWNYA Allen ([id number]), desk editor TIEN BARR ([id number]) on 11/03/2019 11:12:37 AM Referred By: Confirmed By:TAWNYA HAMMOND MD
--- NOTE | 2019-11-07 07:06 | PQF ---
KIMMIE SANTIAGO RYAN ANDREW MD [id number] [facility] [id number] CLINICAL DOCUMENTATION CLARIFICATION FORM: POST DISCHARGE Addendum to original discharge summary date: ____ Late entry note date: __ DATE: 11/07/2019 ATTN: Janak Quick Please exercise your independent, professional judgment in responding to the clarification form. Clinical indicators are provided on the bottom of this form for your review Please check appropriate box(s): [ X ] Anastomotic Ulcer bleeding is a postoperative complication of Bariatic bypass surgery [ ] Anastomotic Ulcer bleeding is not a postoperative complication of Bariatic bypass surgery [ ] Other diagnosis [ ] Unable to determine CLINICAL INDICATORS - SIGNS / SYMPTOMS / LABS Laboratory 10/30 Hgb 9.0; 8.3, Hct 26.6; 25.0 Laboratory 10/31 Hgb 7.8; 7.7; 7.7, Hct 23.6; 23.3; 23.0 H&P p1 10/30 Dr Snyder 5 months ago for some dysphagia and had an EGD which showed some ulcerations near her gastrojejunal anastomosis H&P p1 10/30 Dr Snyder She had 2 more large bowel movements full of dark blood clots and some fresh-appearing blood as well H&P p3 10/30 Dr Snyder Acute gastrointestinal bleed, likely upped GI with her history of Adebayo-en-y gastric bypass surgery Consult p2 10/30 Dr Hendrickson She did have ulcers noted here back in Jun and since then has started taking naproxen twice daily and continues to smoke Consult p2 10/30 Dr Hendrickson I think this is most likely an upper HI bleed from anastomosis ulcer at gastrojejunostomy OP Note p1 10/31 Anastomotic ulcer just below the gastrojejunal anastomosis with visible vessels and adherent clot RISK FACTORS H&P p1 10/30 hx of Adebayo-en-y [id number] surgery H&P p3 10/30 HTN Consult p1 10/30 Smoker a pack per week Consult p2 10/30 home med taking Naproxen 1 tab twice daily H&P p2 10/30 Obesity TREATMENT: OCT 10 IV Protonix 80mg OCT 10 IVF NS 1L Blood bank 10/31 PRBC EGD with Control of bleeding 10/[address] Reyes GI consult 10/31 Dr Moore. Darnell (This form is maintained as a part of the permanent medical record) 2014 [employer]. All Rights Reserved Lary [email or web address]
== END 2019-11-02 12:45 | disposition home or self-care (01) | DRG 393 ==
LOC: ERS 15:17 → 2NO 17:42
PROVIDERS: ADMIT Emergency Medicine; ATTEND Emergency Medicine
PROC: 0W3P8ZZ Control Bleeding in Gastrointestinal Tract, Via Natural or Artificial Opening Endoscopic (ICD-10-PCS; principal; 2019-11-01)
PROC: 30233N1 Transfusion of Nonautologous Red Blood Cells into Peripheral Vein, Percutaneous Approach (ICD-10-PCS; 2019-11-01)
PROC: 3E0234Z Introduction of Serum, Toxoid and Vaccine into Muscle, Percutaneous Approach (ICD-10-PCS; 2019-11-02)
DX: K95.89 Other complications of other bariatric procedure (principal); K28.4 Chronic or unspecified gastrojejunal ulcer with hemorrhage; D62 Acute posthemorrhagic anemia; F32.9 Major depressive disorder, single episode, unspecified; M54.9 Dorsalgia, unspecified; G89.29 Other chronic pain; I10 Essential (primary) hypertension; F17.200 Nicotine dependence, unspecified, uncomplicated; Z98.84 Bariatric surgery status; Z90.49 Acquired absence of other specified parts of digestive tract; Z88.8 Allergy status to other drugs, medicaments and biological substances; Z79.899 Other long term (current) drug therapy; Z90.710 Acquired absence of both cervix and uterus; Z79.1 Long term (current) use of non-steroidal anti-inflammatories (NSAID); Z23 Encounter for immunization; Y83.8 Other surgical procedures as the cause of abnormal reaction of the patient, or of later complication, without mention of misadventure at the time of the procedure
CPT/HCPCS: 36415; 36430; 80048; 80053; 83605; 83690; 85014; 85018; 85025; 85610; 85730; 86850; 86900; 86901; 90471; 90732; 93005; 96374; C9113; G0009; J0171; J2001; J2405; J2704; J3010; J3490; P9016

== ENCOUNTER 2019-12-30 06:31 | Outpatient (CLI) | payer BC, OTHER ==
[2019-12-30 19:38] LABS: SARS-CoV-2 MS2 Positive; SARS-CoV-2 N Gene Negative; SARS-CoV-2 S Gene Negative; SARS-CoV-2 orf1ab Negative
== END 2019-12-30 06:32 | disposition home or self-care (01) ==
LOC: LABBT 06:31
PROVIDERS: ATTEND Internal Medicine Gastroenterology
DX: Z01.812 Encounter for preprocedural laboratory examination (principal); Z11.59 Encounter for screening for other viral diseases; K92.2 Gastrointestinal hemorrhage, unspecified; D62 Acute posthemorrhagic anemia; R10.13 Epigastric pain; R19.4 Change in bowel habit; D64.9 Anemia, unspecified
CPT/HCPCS: 36415; 83540; 85025; 87635; U0003

== ENCOUNTER 2020-01-03 06:03 | Day surgery (SDC) | payer BC ==
[2019-12-30 09:29] VITALS: BMI 47.9
[2020-01-03] MEDS ORDERED: Lidocaine 1% PF 5 ML VIAL ONE (10:13)
[2020-01-03] MEDS ORDERED: PROPOFOL 200 MG/20 ML VIAL ONE (10:13)
--- NOTE | 2020-01-03 11:01 | OP ---
DATE OF PROCEDURE: 01/03/2020 PROCEDURE PERFORMED: Esophagogastroduodenoscopy with biopsy. PREMEDICATION: Given by Anesthesiology Department. PREPROCEDURE DIAGNOSIS: History of bleeding gastric ulcer in 10/2019. POSTPROCEDURE DIAGNOSES: 1. Healed ulcer with scar visible distal to the gastrojejunostomy anastomosis. 2. Status post gastrojejunostomy, otherwise normal exam. PROCEDURE IN DETAIL: Written consents were obtained prior to procedure. After adequate sedation, the forward-viewing endoscope was advanced down the gastric remnant under direct vision. The esophagus appeared normal. The Z-line was visible at approximately 39 cm from the incisors. A short gastric remnant measuring approximately 4 cm was seen. The gastric mucosa appeared normal. The gastrojejunostomy anastomosis was patent. Distal to the anastomosis, a stellate scar was seen without any ulceration. The jejunum was explored and appeared normal. Biopsies obtained from the gastric lining for H pylori as this has not been done with her bleeding ulcer in 10/2019. The patient tolerated the procedure well without any complication. ASSESSMENT: 1. Healed ulcer distal to the gastrojejunostomy anastomosis. 2. Status post gastrojejunostomy, otherwise normal exam. RECOMMENDATIONS: 1. Decrease pantoprazole to 40 mg p.o. q.a.m., then subsequently to 20 mg p.o. daily. 2. Await biopsy results for H pylori. Job ID: [id number]
== END 2020-01-03 08:51 | disposition home or self-care (01) ==
LOC: SDC 06:03
PROVIDERS: ATTEND Internal Medicine Gastroenterology
PROC: 0DB68ZX Excision of Stomach, Via Natural or Artificial Opening Endoscopic, Diagnostic (ICD-10-PCS; principal; 2020-01-03)
DX: K25.9 Gastric ulcer, unspecified as acute or chronic, without hemorrhage or perforation (principal); I10 Essential (primary) hypertension; Z79.899 Other long term (current) drug therapy; Z88.5 Allergy status to narcotic agent; Z98.84 Bariatric surgery status
CPT/HCPCS: 88305; 88312; J2001; J2704

== ENCOUNTER 2020-01-26 06:25 | Outpatient (CLI) | payer BC, OTHER ==
[2020-01-27 14:25] LABS: SARS-CoV-2 MS2 Positive; SARS-CoV-2 N Gene Negative; SARS-CoV-2 S Gene Negative; SARS-CoV-2 orf1ab Negative
== END 2020-01-26 06:26 | disposition home or self-care (01) ==
LOC: LABBT 06:25
PROVIDERS: ATTEND Internal Medicine Gastroenterology
DX: Z01.812 Encounter for preprocedural laboratory examination (principal); Z11.59 Encounter for screening for other viral diseases; Z12.11 Encounter for screening for malignant neoplasm of colon
CPT/HCPCS: 87635; U0003

== ENCOUNTER → 2020-01-30 | Day surgery (SDC) | payer BC ==
[2020-01-25 09:48] VITALS: BMI 46.5
--- NOTE | 2020-01-30 09:30 | OP ---
DATE OF PROCEDURE: 01/30/2020 INDICATIONS FOR PROCEDURE: Screening for malignant neoplasm of the colon. PROCEDURE: Colonoscopy with polypectomy. DESCRIPTION OF PROCEDURE: After the risks and benefits of the procedure were explained to the patient including risks of bleeding, infection, perforation, reactions to anesthesia, aspiration and/or pain, informed consent was obtained. The patient was then taken to the endoscopy suite, where she was placed in the left lateral decubitus position, followed by introduction of deep sedation via propofol and anesthesia support. Once the patient was adequately sedated, a digital rectal examination was performed followed by introduction of the standard colonoscope, which was advanced to the terminal ileum without difficulty. The quality of the prep was good with a small amount of retained semi-liquid and semi-solid stool, that was easily suctioned. The patient tolerated the procedure well with no immediate perioperative complications. Upon conclusion of the procedure, all equipment was removed from the patient and she was transferred to Day Stay in satisfactory condition. FINDINGS: Digital rectal exam, normal findings were seen on external examination. Colon findings: Normal-appearing mucosa was seen within the terminal ileum as well as at the ileocecal valve and appendiceal orifice. Normal-appearing mucosa was then seen in the cecum and ascending colon. A 3- to 4-mm polyp was seen in the transverse colon and completely removed with a combination of cold snare polypectomy and biopsy forceps. It was retrieved and placed in a specimen jar for further evaluation. Normal-appearing mucosa was then seen in the descending colon. Scattered small diverticula were seen in the sigmoid colon. Normal-appearing mucosa was then seen in the rectum with hypertrophied anal papillae seen on rectal retroflexion. IMPRESSION: 1. 3- to 4-mm transverse colon polyp, status post cold snare and biopsy forceps. 2. Mild sigmoid diverticulosis. 3. Hypertrophied anal papillae. RECOMMENDATIONS: 1. We will follow up on the biopsy results with repeat colonoscopy interval depending on pathology report. 2. If the pathology report shows adenomatous tissue, we would recommend a repeat colonoscopy in 5 years for surveillance. 3. Recommend a higher fiber diet given the presence of diverticulosis. 4. Follow up in the GI clinic as needed/as scheduled. Job ID: [id number]
== END ==
LOC: SDC 05:56
PROVIDERS: ATTEND Internal Medicine Gastroenterology
PROC: 0DBL8ZZ Excision of Transverse Colon, Via Natural or Artificial Opening Endoscopic (ICD-10-PCS; principal; 2020-01-30)
DX: Z12.11 Encounter for screening for malignant neoplasm of colon (principal); K63.5 Polyp of colon; K57.30 Diverticulosis of large intestine without perforation or abscess without bleeding; K62.89 Other specified diseases of anus and rectum; I10 Essential (primary) hypertension; Z79.899 Other long term (current) drug therapy; Z87.891 Personal history of nicotine dependence; Z88.5 Allergy status to narcotic agent
CPT/HCPCS: 88305; J2001; J2704